=== PATIENT | female | born 1985 | race Caucasian/White ===

== ENCOUNTER 2017-01-05 05:41 | Day surgery (SDC) | payer OTHER ==
[2017-01-05] VITALS (8 sets, daily range): BP systolic 110–125; BP diastolic 66–76; PULSE 63–82; RESP 8–17; O2SAT 94–100
[~2017-01-05] VITALS: Ht 160 cm; Wt 70.7 kg
[~2017-01-05 05:41] MED LIST: IBUP800T28 PO; MIRENA IUD INTRAUTERI; OXYC1TAB24 PO
[2017-01-05] MEDS: Lactated Ringer's 1,000 ML IV SCH ×2 (05:41→07:22)
[2017-01-05] MEDS ORDERED: Neostigmine 1 mg/mL 5 mL Inj ONE (05:42)
[2017-01-05] MEDS ORDERED: Lidocaine PF 1% 30 mL Inj ONE (05:42)
[2017-01-05] MEDS ORDERED: Rocuronium 10 mg/mL 5 mL Inj ONE (05:42)
[2017-01-05] MEDS ORDERED: Ondansetron 2 mg/mL 2 mL Inj ONE (05:42)
[2017-01-05] MEDS ORDERED: Glycopyrrolate 0.2 mg/mL 5 mL Inj ONE (05:42)
[2017-01-05] MEDS ORDERED: Propofol 10,000 mCg/mL 20 mL Inj ONE (05:42)
[2017-01-05] MEDS ORDERED: Dexamethasone 4 mg/mL Inj ONE (05:42)
[2017-01-05] MEDS ORDERED: Phenylephrine/NS 100 mCg/mL 10 mL Syringe IVPUSH ONE (05:42)
[2017-01-05] MEDS ORDERED: Succinylcholine Chloride 20 mg/mL 5 mL Inj ONE (05:42)
[2017-01-05] MEDS ORDERED: fentaNYL-PF 50 mCg/mL 2 mL Inj ONE (05:42)
[2017-01-05] MEDS ORDERED: MetoCLOpramide 5 mg/mL 2 mL Inj ONE (05:42)
[2017-01-05] MEDS ORDERED: Lactated Ringer's 500 ML IV PRN (07:01)
[2017-01-05] MEDS ORDERED: Lactated Ringer's 1,000 ML IV SCH (07:01)
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
[2017-01-05] MEDS ORDERED: hydrALAZINE 20 mg/mL Inj IVPUSH PRN (07:05)
[2017-01-05] MEDS ORDERED: Phenylephrine 10,000 mCg/mL Inj IVPUSH PRN (07:05)
[2017-01-05] MEDS ORDERED: HYDROmorphone 1 mg/mL Inj IVPUSH PRN ×2 (07:05→08:25)
[2017-01-05] MEDS ORDERED: fentaNYL-PF 50 mCg/mL 2 mL Inj IVPUSH PRN (07:05)
[2017-01-05] MEDS ORDERED: MetoCLOpramide 5 mg/mL 2 mL Inj IVPUSH PRN ×2 (07:05→08:25)
[2017-01-05] MEDS ORDERED: EPHEDrine Sulfate 50 mg/mL Inj IVPUSH PRN (07:05)
[2017-01-05] MEDS ORDERED: Atropine 0.4 mg/mL Inj IVPUSH PRN (07:05)
[2017-01-05] MEDS ORDERED: Dexamethasone 4 mg/mL Inj IVPUSH PRN (07:05)
[2017-01-05] MEDS ORDERED: Ondansetron 2 mg/mL 2 mL Inj IVPUSH PRN ×2 (07:05→08:25)
[2017-01-05] MEDS ORDERED: Labetalol 5 mg/mL 4 mL Inj IV PRN (07:05)
[2017-01-05] MEDS ORDERED: Bupivacaine 0.5%/EPI 50 mL Inj INFILTRATE ONE (07:54)
[2017-01-05] MEDS ORDERED: oxyCODONE-Acetamin 5-325 mg Tablet PO PRN (08:25)
[2017-01-05] MEDS ORDERED: diphenhydrAMINE 25 mg Capsule PO PRN (08:25)
[2017-01-05] MEDS ORDERED: HYDROcodone-APAP 5-325 mg Tablet PO PRN (08:25)
--- NOTE | 2017-01-05 08:30 | PCM.DIGYN ---
Surgical Discharge Instruction Dates of Hospitalization Date of Hospital Admission Providers Admitting Physician: Primary Care Physician: Antwan Fitzgerald MD Attending Physician: Nidhi Mckeon MD Diagnosis at Time of Discharge Diagnosis at time of discharge status post laparoscopic sterilization Problems: Diet Discharge Diet: No restrictions Activity Discharge Activity-General: Activity as pain allows, No lifting >15 pounds for 2 weeks, No driving while taking narcotic Dressing and Incisional Care Hygiene: May shower, NO bathtub, hot tub or whirlpool Additional Instructions Discharge Instructions You have had an uncomplicated laparoscopic tubal ligation. Please call with severe pain, temperature greater than 100.5, malodorous vaginal discharge, heavy vaginal bleeding filling more than a pad per hour or fevers and chills. Please do not drive while taking narcotics. Follow Up Plan Follow-up appointment: Weeks (2) Call your provider for: Fever, Chills, Shortness of breath, Heavy vaginal bleeding, Wound redness, Increasing pain Nidhi Mckeon MD Jan 05, 2017 08:30
--- NOTE | 2017-01-05 08:50 | PCM.ANEP1 ---
Post Anesthesia Phase 1 PACU Phase 1 Assessment Date of Service: Jan 05, 2017 Vital Signs Vital Signs Date Time Temp Pulse Resp B/P Pulse Ox O2 Delivery O2 Flow Rate FiO2 01/05/17 08:40 63 16 112/66 95 Room Air 01/05/17 08:35 67 17 112/75 94 Room Air 01/05/17 08:30 69 14 113/66 97 Room Air 01/05/17 08:25 73 12 114/70 99 Room Air 01/05/17 08:23 36.4 74 8 125/76 100 Simple Mask 8 01/05/17 06:00 36.5 82 16 110/71 100 Room Air Anesthetic Administered: GA Level of Alertness: Sleepy, easy to arouse HINSON's with Equal Strength: Yes Pain: No Nausea or Vomiting: No Oxygen Delivery: Simple Mask Lungs: Normal Air Movement Yony Fortune MD Jan 05, 2017 08:50
--- NOTE | 2017-01-05 09:17 | OP ---
[address] [address] OPERATIVE REPORT PATIENT: SHARA CHEUNG : 1985 MR#: [id number] ADMIT: 01/05/2017 JOB ID: [id number] DATE OF SURGERY: 01/05/2017 PREOPERATIVE DIAGNOSIS(ES): Undesired fertility. POSTOPERATIVE DIAGNOSIS(ES): Undesired fertility. PROCEDURE PERFORMED: Laparoscopic bilateral tubal ligation with Filshie clips. SURGEON: Nidhi Mckeon MD. ANESTHESIA: General endotracheal anesthesia. ESTIMATED BLOOD LOSS: 2 cc. FLUID REPLACEMENT: 800 cc of crystalloid. URINE OUTPUT: Red Xavier straight catheterized at the start of procedure with return of 5 cc of clear yellow urine. FINDINGS: Normal uterus, ovaries and fallopian tubes. COMPLICATIONS: None apparent. INDICATIONS: This is a 31-year-old, G3, P 1-1-1-2 female who presented to our clinic requesting a sterilization procedure. She was positive that she did not desire any future fertility and after signing her [facility] consent at that time, returned for preop visit 30 days after her initial clinic. At her followup visit, she continued to desire a tubal ligation. Her last delivery been complicated by a 26-week classical section related to severe preeclampsia, and she had a lot of stress related to this. Risks, benefits and alternatives were discussed with her prior to proceeding including risk of regret, and she elected to proceed. DESCRIPTION OF PROCEDURE: The patient was taken to the operating room. She was placed in dorsal lithotomy position, where she was prepped and draped in the usual fashion. For stabilization during the vaginal prep, her IUD was removed. A bivalved speculum was then placed, and her cervix was grasped with a tenaculum. An acorn uterine manipulator was then placed. Attention was then turned to the abdomen, where 2 cc of local anesthetic was injected infraumbilically. The Veress needle was then inserted through the umbilicus, and the abdomen was then insufflated with appropriately rising CO2 pressures after a saline drop test confirmed appropriate placement. The patient was then placed in Trendelenburg position, where her fallopian tubes were then identified. A second 8 mm infraumbilical port was then placed after injection of 3 cc of local anesthetic. A 5 mm port was placed suprapubically. When it was noted that the Filshie clip applicator would not fit through the 5 mm port, this was replaced with an 8 mm laparoscopic port after the incision was extended to accommodate this trocar. Using the Filshie clip applicator, the right fallopian tube was then elevated and a Filshie clip was applied. Attention was then turned to the left side, where the same process was repeated. The Filshie clips were noted to be in an appropriate position. Note that at this point in time, that the CO2 was released from the abdomen. The trocars were then removed. The skin was then closed with 4-0 Vicryl in a subcuticular fashion with Dermabond placed on top. The acorn manipulator was removed from the cervix and the tenaculum was then released. Examination of the tenaculum sites revealed some oozing, and hemostasis was achieved using silver nitrate. The patient tolerated this procedure well and recovered in labor and delivery. All sponge, needle and instrument counts were correct.
--- NOTE | 2017-01-05 09:29 | PCM.ANEP2 ---
Post Anesthesia Evaluation ASA/CMS Post Anesthesia Date of Service: Jan 05, 2017 VS in Patient's Normal Range?: Yes Resp Stable; Airway Patent?: Yes CV Function & Hydration Stable: Yes Mental Status Recovered?: Yes Pain control Satisfactory?: Yes N/V Control Satisfactory?: Yes Yony Fortune MD Jan 05, 2017 09:29
== END 2017-01-05 23:59 | disposition home or self-care (01) ==
LOC: SAS 05:41
PROVIDERS: ATTEND Obstetrics & Gynecology
DX: Z30.2 Encounter for sterilization (principal); F41.9 Anxiety disorder, unspecified; F32.9 Major depressive disorder, single episode, unspecified; F11.21 Opioid dependence, in remission; F17.210 Nicotine dependence, cigarettes, uncomplicated
CPT/HCPCS: 58301; 58671; J0330; J1100; J2250; J2370; J2405; J2710; J2765; J3010; J7120